=== PATIENT | female | born 2005 | race African-American/Black ===

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

== ENCOUNTER 2024-12-06 14:38 | Emergency (ER) | payer OTHER ==
[~2024-12-06] VITALS: Ht 167.6 cm; Wt 108.4 kg
[2024-12-06] MEDS ORDERED: SERT50TA29 (14:45)
[2024-12-06] MEDS ORDERED: HYDR-643 (14:45)
[2024-12-06] MEDS: IBUPROFEN 800 MG TAB PO ONE (17:22)
[2024-12-06 18:30] VITALS: BP 158/87; TEMP 97.2; O2SAT 98
== END 2024-12-06 18:53 | disposition home or self-care (01) ==
LOC: M ED 14:38
DX: R51.9 Headache, unspecified (principal); F41.9 Anxiety disorder, unspecified; Z79.899 Other long term (current) drug therapy